=== PATIENT | female | born 1960 | race Caucasian/White ===

== ENCOUNTER 2017-12-31 21:01 | Emergency (ER) | payer MEDICARE, OTHER ==
[~2017-12-31] VITALS: Ht 165.1 cm; Wt 124.3 kg
[~2017-12-31 21:01] MED LIST: ACET500 PO; ALBU90OI INH; AMIT10 PO; ATOR20 PO; CITA20 PO; CYCL10 PO; ERGO400 PO; Ecotrin325 MG PO; Garlic1 EACH PO; HYDCHL25 PO; LEVSOD100 PO; LISI20 PO; LORATADINE PO; METF500C PO; NAPR500 PO; OMEP20ER PO; PRAV20 PO; PROCODE120 PO; Prednisone20 MG PO; ROXICODONE5 MG PO; SPACE CHAMBER1 EACH MC; Sulindac200 MG PO; TRAM50 PO; Voltaren100 GM TOP; ZESTORETIC 20-121 EA PO
[2018-08-26] MEDS ORDERED: LEVSOD125 PO (09:47)
[2018-08-26] MEDS ORDERED: VOLTAREN100 GM TOP (09:48)
[2018-08-26] MEDS ORDERED: TRAM50 PO (10:38)
[2018-08-26] MEDS ORDERED: ALLO100 PO (10:39)
[2018-08-26] MEDS ORDERED: CHOL10002 PO (10:40)
[2018-09-09] MEDS ORDERED: OXYC5 PO (11:24)
[2018-09-09] MEDS ORDERED: ASPI325 PO (11:25)
[2018-09-09] MEDS ORDERED: ACET500 PO (12:36)
== END 2017-12-31 22:17 | disposition home or self-care (01) ==
LOC: ER 21:01
DX: M25.572 Pain in left ankle and joints of left foot (principal); F32.9 Major depressive disorder, single episode, unspecified; I10 Essential (primary) hypertension; E03.9 Hypothyroidism, unspecified; K21.9 Gastro-esophageal reflux disease without esophagitis; E78.00 Pure hypercholesterolemia, unspecified; Z79.899 Other long term (current) drug therapy; Z79.82 Long term (current) use of aspirin; Z87.891 Personal history of nicotine dependence
CPT/HCPCS: 29515; 73610; 99283; L1906

== ENCOUNTER 2020-10-26 23:54 | Emergency (ER) | payer MEDICARE, OTHER ==
[~2020-10-26] VITALS: Ht 167.6 cm; Wt 124.7 kg
[~2020-10-26 23:54] MED LIST changes: +ALLO100 PO; +ASPI325 PO; +CHOL10002 PO; +LEVSOD125 PO; +OXYC5 PO; +VOLTAREN100 GM TOP
[2020-10-27 00:34] LABS: BASOPHILS ABSOLUTE AUTO 0.06 K/mm3 (0.00-0.23); BASOPHILS PERCENT AUTO 0 % (0-2); EOSINOPHILS ABSOLUTE AUTO 0.15 K/mm3 (0.00-0.68); EOSINOPHILS PERCENT AUTO 1 % (0-6); Hematocrit 47.4 % (33.0-51.0); Hemoglobin 14.5 g/dL (11.5-16.0); IMMATURE GRAN ABSOLUTE AUTO 0.13 K/mm3 (0.00-0.10); IMMATURE GRAN PERCENT AUTO 1 % (0-1); LYMPHOCYTES PERCENT AUTO 12 % (21-46); MONOCYTES ABSOLUTE AUTO 0.66 K/mm3 (0.16-1.47); MONOCYTES PERCENT AUTO 3 % (4-13); Mean Corpuscular HGB 27.9 pg (26.0-34.0); Mean Corpuscular HGB Conc 30.6 g/dL (31.5-36.5); Mean Corpuscular Volume 91 fL (80-100); Mean Platelet Volume 10.4 fL (9.1-12.4); NEUTROPHILS ABSOLUTE AUTO 19.08 K/mm3 (1.96-9.15); NEUTROPHILS PERCENT AUTO 84 % (41-73); Platelet Count 474 K/mm3 (150-400); RDW Coefficient Variation 13.2 % (11.7-14.2); RDW Standard Deviation 44.9 fL (35.1-46.3); Red Blood Cell Count 5.19 M/mm3 (3.80-5.20); White Blood Cell Count 22.78 K/mm3 (4.00-11.30)
[2020-10-27 01:09] LABS: Albumin, Blood 3.7 g/dL (3.4-5.0); Bilirubin, Total 0.5 mg/dL (0.1-1.0); Bun/Creatinine Ratio 19.2 (12.0-20.0); Calcium, Blood 9.2 mg/dL (8.5-10.1); Creatinine, Blood 1.3 mg/dL (0.40-1.00); Globulin, Blood 3.7 g/dL (2.2-4.0); Potassium, Blood 3.5 mmol/L (3.5-5.5); Total Protein, Blood 7.4 g/dL (6.4-8.2)
[2020-10-27] MEDS ORDERED: Cipro500 MG PO (04:10)
[2020-10-27] MEDS ORDERED: ONDA4ODT MM (04:10)
[2020-10-27] MEDS ORDERED: Flagyl500 MG PO (04:10)
== END 2020-10-27 05:10 | disposition home or self-care (01) ==
LOC: ER 23:54
PROVIDERS: Emergency Medicine
DX: K52.9 Noninfective gastroenteritis and colitis, unspecified (principal); E03.9 Hypothyroidism, unspecified; K21.9 Gastro-esophageal reflux disease without esophagitis; I10 Essential (primary) hypertension; E78.00 Pure hypercholesterolemia, unspecified; Z79.899 Other long term (current) drug therapy; Z79.84 Long term (current) use of oral hypoglycemic drugs; Z79.82 Long term (current) use of aspirin; Z87.891 Personal history of nicotine dependence
CPT/HCPCS: 71045; 74177; 76705; 80053; 84484; 85025; 93005; 93010; 99285-25; A9270; Q9967

== ENCOUNTER 2021-05-09 08:38 | Day surgery (SDC) | payer MEDICARE, OTHER ==
[~2021-05-09] VITALS: Ht 167.6 cm; Wt 121.3 kg
[~2021-05-09 08:38] MED LIST changes: +Cipro500 MG PO; +Flagyl500 MG PO; +ONDA4ODT MM
[2021-05-09] MEDS ORDERED: LORA10ER (08:50)
[2021-05-09] MEDS ORDERED: AMLO5 (08:50)
--- NOTE | 2021-05-09 10:03 | NUR ---
05/09/21 1003 Peter Turner LIDOCAINE 2% 1:200,000 MIXED W/ BUPIVACAINE 0.75 % PER ORDER 1:1 FOR INJECTION AT [facility] BY DR. BELTRAN.
== END 2021-05-09 10:41 | disposition home or self-care (01) ==
LOC: ORSCSDS 08:38
PROVIDERS: Ophthalmology
PROC: 080P0ZZ Alteration of Left Upper Eyelid, Open Approach (ICD-10-PCS; principal; 2021-05-09 09:45)
PROC: 080N0ZZ Alteration of Right Upper Eyelid, Open Approach (ICD-10-PCS; principal; 2021-05-09 09:45)
DX: H02.831 Dermatochalasis of right upper eyelid (principal); H02.834 Dermatochalasis of left upper eyelid; Z11.9 Encounter for screening for infectious and parasitic diseases, unspecified; K21.9 Gastro-esophageal reflux disease without esophagitis; I10 Essential (primary) hypertension; E66.9 Obesity, unspecified; Z68.41 Body mass index [BMI] 40.0-44.9, adult; Z79.84 Long term (current) use of oral hypoglycemic drugs; Z79.899 Other long term (current) drug therapy
CPT/HCPCS: 82947; A9270; J2250; J2704; J7040

== ENCOUNTER 2022-06-28 07:25 | Day surgery (SDC) | payer MEDICARE, OTHER ==
[~2022-06-28] VITALS: Ht 167.6 cm; Wt 123.1 kg
[~2022-06-28 07:25] MED LIST changes: +AMLO5; +LORA10ER
[2022-06-28] MEDS ORDERED: TRAM50 (07:59)
--- NOTE | 2022-06-28 08:36 | NUR ---
06/28/22 0836 SIOMARA DUBON 10MLS LIDOCAINE 2% WITH EPI 1:100,000 INJECTED INTO RWRIST PRIOR TO STERILE PREP BY DR HDEZ
== END 2022-06-28 09:27 | disposition home or self-care (01) ==
LOC: ORSCSDS 07:25
PROVIDERS: Orthopaedic Surgery
PROC: 01N50ZZ Release Median Nerve, Open Approach (ICD-10-PCS; principal; 2022-06-28 08:30)
DX: G56.03 Carpal tunnel syndrome, bilateral upper limbs (principal); E66.01 Morbid (severe) obesity due to excess calories; Z68.41 Body mass index [BMI] 40.0-44.9, adult; E11.9 Type 2 diabetes mellitus without complications; I10 Essential (primary) hypertension; E78.5 Hyperlipidemia, unspecified; E03.9 Hypothyroidism, unspecified; F32.A Depression, unspecified; Z79.899 Other long term (current) drug therapy; Z79.84 Long term (current) use of oral hypoglycemic drugs; Z87.891 Personal history of nicotine dependence
CPT/HCPCS: 82947; J0690; J1100; J2250; J2405; J2704; J3010

== ENCOUNTER 2025-05-23 11:52 | Observation (INO) | payer MEDICARE ==
[~2025-05-23] VITALS: Ht 167.6 cm; Wt 124.0 kg
[~2025-05-23 11:52] MED LIST changes: -AMLO5; +AMLO5 PO; +TRAM50
[2025-05-23] MEDS ORDERED: NS 1,000 ML IV SCH (12:05)
[2025-05-23] MEDS ORDERED: CeFAZolin Sodium 2,000 MG in NS 100 ML IV ONE (12:05)
[2025-05-23 12:31] LABS: BASOPHILS ABSOLUTE AUTO 0.05 K/mm3 (0.00-0.23); BASOPHILS PERCENT AUTO 0 % (0-2); EOSINOPHILS ABSOLUTE AUTO 0.11 K/mm3 (0.00-0.68); EOSINOPHILS PERCENT AUTO 1 % (0-6); Hematocrit 39.6 % (33.0-51.0); Hemoglobin 12.8 g/dL (11.5-16.0); IMMATURE GRAN ABSOLUTE AUTO 0.07 K/mm3 (0.00-0.10); IMMATURE GRAN PERCENT AUTO 0 % (0-1); LYMPHOCYTES ABSOLUTE AUTO 1.31 K/mm3 (0.84-5.20); LYMPHOCYTES PERCENT AUTO 7 % (21-46); MONOCYTES ABSOLUTE AUTO 0.72 K/mm3 (0.16-1.47); MONOCYTES PERCENT AUTO 4 % (4-13); Mean Corpuscular HGB Conc 32.3 g/dL (31.5-36.5); Mean Corpuscular Volume 88 fL (80-100); NEUTROPHILS ABSOLUTE AUTO 16.13 K/mm3 (1.96-9.15); NEUTROPHILS PERCENT AUTO 88 % (41-73); NRBC ABSOLUTE 0.00 K/mm3 (0.00-0.02); NRBC Auto 0.0 /100 WBC (0.0-0.2); Platelet Count 269 K/mm3 (150-400); RDW Coefficient Variation 13.3 % (11.7-14.2); RDW Standard Deviation 43.3 fL (35.1-46.3)
[2025-05-23 12:51] LABS: Alanine Aminotransfer (ALT/SGP 47.0 U/L (12-78); Albumin, Blood 4.1 g/dL (3.4-5.0); Albumin/Globulin Ratio 0.9 (0.8-1.8); Anion Gap 9.0 mmol/L (3-11); Aspartate Aminotrans (AST/SGOT 33.0 U/L (12-37); Bilirubin, Total 0.6 mg/dL (0.1-1.0); Blood Urea Nitrogen 23.0 mg/dL (8-24); C-REACTIVE PROTEIN, EXT RANGE 0.7 mg/dL (0.000-0.300); CO2, Blood 28.0 mmol/L (21-32); Calcium, Blood 9.4 mg/dL (8.5-10.1); Chloride, Blood 102.0 mmol/L (98-108); Creatinine, Blood 0.97 mg/dL (0.40-1.00); Globulin, Blood 4.4 g/dL (2.2-4.0); Glucose, Blood 149.0 mg/dL (70-99); Potassium, Blood 4.0 mmol/L (3.5-5.5); Sodium, Blood 135.0 mmol/L (136-145); Total Protein, Blood 8.5 g/dL (6.4-8.2)
[2025-05-23] MEDS ORDERED: Ampicillin Sod/Sulbactam Sod 3 GM in NS 100 ML IV ONE (15:05)
[2025-05-23] MEDS ORDERED: NS 500 ML IV SCH (16:00)
[2025-05-23] MEDS ORDERED: Enoxaparin 40 MG/0.4 ML SYR SC SCH (16:00)
[2025-05-23] MEDS ORDERED: Ketorolac Tromethamine 15mg Vial IV PRN (17:35)
[2025-05-23] MEDS ORDERED: Labetalol HCL 5 MG/ML 4ML Injection (Single Dose) IV PRN (17:35)
[2025-05-23] MEDS ORDERED: LISI20 PO (18:04)
[2025-05-23 18:05] VITALS: BP 196/96
[2025-05-23] MEDS ORDERED: Cyclobenzaprine5 MG (18:06)
[2025-05-23] MEDS ORDERED: LORA10ER (18:06)
[2025-05-23] MEDS ORDERED: Vitamin D1000 UNI1 (18:06)
[2025-05-23] MEDS ORDERED: VITAMIN B12500 MCG (18:06)
[2025-05-23 18:16] VITALS: BP 158/82
[2025-05-23 19:39] VITALS: BP 129/77
[2025-05-23] MEDS ORDERED: Lactobacil 2-S.Thermo-Bifido 1 1 Cap PO SCH (21:00)
[2025-05-23] MEDS ORDERED: NS 500 ML IV ONE (23:55)
[2025-05-24] MEDS ORDERED: Ampicillin Sod/Sulbactam Sod 3 GM in NS 100 ML IV SCH
[2025-05-24 03:05] VITALS: BP 158/84
--- NOTE | 2025-05-24 05:07 | NUR ---
PT A&OX4, INDEPENDENT IN WITH ASSISTANCE WITH TUBES. RLE HRST, TRACE EDEMA TO BLE.
[2025-05-24 06:11] LABS: BASOPHILS ABSOLUTE AUTO 0.04 K/mm3 (0.00-0.23); BASOPHILS PERCENT AUTO 0 % (0-2); EOSINOPHILS ABSOLUTE AUTO 0.04 K/mm3 (0.00-0.68); EOSINOPHILS PERCENT AUTO 0 % (0-6); Hematocrit 34.9 % (33.0-51.0); Hemoglobin 11.1 g/dL (11.5-16.0); IMMATURE GRAN ABSOLUTE AUTO 0.04 K/mm3 (0.00-0.10); IMMATURE GRAN PERCENT AUTO 0 % (0-1); LYMPHOCYTES ABSOLUTE AUTO 1.65 K/mm3 (0.84-5.20); LYMPHOCYTES PERCENT AUTO 14 % (21-46); MONOCYTES ABSOLUTE AUTO 0.73 K/mm3 (0.16-1.47); MONOCYTES PERCENT AUTO 6 % (4-13); Mean Corpuscular HGB Conc 31.8 g/dL (31.5-36.5); Mean Corpuscular Volume 90 fL (80-100); NEUTROPHILS ABSOLUTE AUTO 9.28 K/mm3 (1.96-9.15); NEUTROPHILS PERCENT AUTO 79 % (41-73); NRBC ABSOLUTE 0.00 K/mm3 (0.00-0.02); NRBC Auto 0.0 /100 WBC (0.0-0.2); Platelet Count 221 K/mm3 (150-400); RDW Coefficient Variation 13.6 % (11.7-14.2); RDW Standard Deviation 44.3 fL (35.1-46.3)
[2025-05-24 06:30] LABS: Alanine Aminotransfer (ALT/SGP 34.0 U/L (12-78); Albumin, Blood 3.1 g/dL (3.4-5.0); Albumin/Globulin Ratio 0.7 (0.8-1.8); Anion Gap 8.0 mmol/L (3-11); Aspartate Aminotrans (AST/SGOT 26.0 U/L (12-37); Bilirubin, Total 0.6 mg/dL (0.1-1.0); Blood Urea Nitrogen 15.0 mg/dL (8-24); CO2, Blood 28.0 mmol/L (21-32); Calcium, Blood 8.5 mg/dL (8.5-10.1); Chloride, Blood 107.0 mmol/L (98-108); Creatinine, Blood 0.88 mg/dL (0.40-1.00); Globulin, Blood 4.2 g/dL (2.2-4.0); Glucose, Blood 124.0 mg/dL (70-99); Potassium, Blood 3.5 mmol/L (3.5-5.5); Sodium, Blood 139.0 mmol/L (136-145); Total Protein, Blood 7.3 g/dL (6.4-8.2)
[2025-05-24 07:39] VITALS: BP 153/91
[2025-05-24] MEDS ORDERED: Enoxaparin 40 MG/0.4 ML SYR SC SCH (09:00)
[2025-05-24] MEDS ORDERED: ACET325 PO (13:57)
[2025-05-24] MEDS ORDERED: AMOCLA875 PO (13:58)
[2025-05-24] MEDS ORDERED: HYDCHL25 PO (13:59)
[2025-05-24] MEDS ORDERED: VISBIOME 112.51 EACH PO (13:59)
--- NOTE | 2025-05-24 16:18 | NUR ---
DISCHARGED APPROX 1545 VIA [employer] VEH[employer]. DC INSTRUCTIONS GIVE, QUESTIONS ANSWERED, BELONGINGS SENT.
== END 2025-05-24 16:43 | disposition home or self-care (01) ==
LOC: ER 11:52 → MEDS 11:53
PROVIDERS: Emergency Medicine; ADMIT Internal Medicine
DX: A41.9 Sepsis, unspecified organism (principal); L03.115 Cellulitis of right lower limb; R65.20 Severe sepsis without septic shock; E87.20 Acidosis, unspecified; K21.9 Gastro-esophageal reflux disease without esophagitis; E78.00 Pure hypercholesterolemia, unspecified; E03.9 Hypothyroidism, unspecified; I10 Essential (primary) hypertension; E66.813 Obesity, class 3; Z68.41 Body mass index [BMI] 40.0-44.9, adult; Z87.891 Personal history of nicotine dependence; Z79.84 Long term (current) use of oral hypoglycemic drugs; Z79.890 Hormone replacement therapy; Z79.899 Other long term (current) drug therapy
CPT/HCPCS: 36415; 80053; 82947; 83036; 83605; 85025; 86140; 90715; 96366; 96367; 96372; 96375; 96376; A9270; G0378; J0295; J0690; J1650; J1885; J7030; J7040; J7120

== ENCOUNTER 2025-08-19 10:26 | Day surgery (SDC) | payer MEDICARE ==
[~2025-08-19] VITALS: Ht 165.1 cm; Wt 123.0 kg
[~2025-08-19 10:26] MED LIST changes: +ACET325 PO; +AMOCLA875 PO; +ATOR10 PO; -ATOR20 PO; +Cyclobenzaprine5 MG PO; +LORA10ER PO; -TRAM50; +VISBIOME 112.51 EACH PO; +VITAMIN B12500 MCG; +Vitamin D1000 UNI1
[2025-08-19 11:13] VITALS: BP 160/116
--- NOTE | 2025-08-19 11:31 | NUR ---
Patient confirms NPO status and agrees with scheduled surgery. Patient States Post-Procedure ride home has been arranged. Patient states colon prep results clear. Pre-Op teaching done. Pt verbalizes understanding.
[2025-08-19 12:15] VITALS: BP 128/102
[2025-08-19 12:32] VITALS: BP 141/95
--- NOTE | 2025-08-19 12:43 | NUR ---
Discharged via wheelchair to private car for ride home. Patient's vital signs stable and back to baseline. Patient woke up and alerted this RN that her front bridge was missing. She denied pain or discomfort at time of recovery. In preop patient was counseled that the team would not complete the upper endoscopy due to the condition of her dentition and that there was a risk that her teeth would be damaged during the procedure. Patient was counseled on discharge instructions and verbalized understanding.
== END 2025-08-19 23:00 | disposition home or self-care (01) ==
LOC: ORSCMMR 10:26 → ORD 11:30 → ORSCMMR 11:30
PROVIDERS: Surgery
PROC: 0DBK8ZX Excision of Ascending Colon, Via Natural or Artificial Opening Endoscopic, Diagnostic (ICD-10-PCS; principal; 2025-08-19 11:30)
PROC: 0DBP8ZX Excision of Rectum, Via Natural or Artificial Opening Endoscopic, Diagnostic (ICD-10-PCS; principal; 2025-08-19 11:30)
DX: Z12.11 Encounter for screening for malignant neoplasm of colon (principal); D12.2 Benign neoplasm of ascending colon; K62.1 Rectal polyp; Z80.0 Family history of malignant neoplasm of digestive organs; K21.9 Gastro-esophageal reflux disease without esophagitis; E03.9 Hypothyroidism, unspecified; F32.A Depression, unspecified; E78.00 Pure hypercholesterolemia, unspecified; E66.01 Morbid (severe) obesity due to excess calories; Z68.42 Body mass index [BMI] 45.0-49.9, adult; I12.9 Hypertensive chronic kidney disease with stage 1 through stage 4 chronic kidney disease, or unspecified chronic kidney disease; E11.22 Type 2 diabetes mellitus with diabetic chronic kidney disease; N18.9 Chronic kidney disease, unspecified; Z79.84 Long term (current) use of oral hypoglycemic drugs; Z79.899 Other long term (current) drug therapy; Z87.891 Personal history of nicotine dependence
CPT/HCPCS: 82947; 88305; J2704; J7120